=== PATIENT | female | born 1995 | race Hispanic/Latino ===

== ENCOUNTER 2020-04-16 13:35 | Emergency (ER) | payer OTHER ==
[2020-04-16] MEDS ORDERED: LIDOCAINE HCL 2% VISCOUS 15 ML UDCUP ONE (14:36)
[2020-04-16] MEDS ORDERED: MAG HYDROX/AL HYDROX/SIMETH ES 30 ML SUSP UDCUP ONE (14:36)
[2020-04-16] MEDS ORDERED: ONDANSETRON HCL 4 MG/2 ML VIAL ONE (14:37)
[2020-04-16] MEDS ORDERED: MORPHINE SULFATE 4 MG/1ML SYG ONE (17:58)
[2020-04-16] MEDS ORDERED: FAMOTIDINE/PF 20 MG/2 ML VIAL IV ONE (17:59)
== END 2020-04-16 19:10 | disposition home or self-care (01) ==
LOC: EDH 13:35
DX: K29.70 Gastritis, unspecified, without bleeding (principal); A08.4 Viral intestinal infection, unspecified; Z72.0 Tobacco use
CPT/HCPCS: 36415; 76705; 80053; 81001; 81025; 83690; 85025; 96361; 96374; 96375; 99285; J2270; J2405; J3490